=== PATIENT | female | born 1985 | race African-American/Black ===

== ENCOUNTER 2022-06-08 09:06 | Outpatient (CLI) | payer MEDICARE, MEDICAID | END 2022-06-08 09:07 | disposition home or self-care (01) | LOC: CT 09:06 | PROVIDERS: ATTEND Family Medicine | DX: R10.0 Acute abdomen (principal); N20.1 Calculus of ureter; K42.9 Umbilical hernia without obstruction or gangrene | CPT/HCPCS: 74160; 74177 ==